=== PATIENT | male | born 1995 | race Caucasian/White ===

== ENCOUNTER → 2022-03-06 | Outpatient (CLI) | payer OTHER, SELFPAY ==
[2022-03-06 18:06] LABS: Anion Gap 4 (5-15); BUN 16 mg/dL (7-18); BUN/Creat Ratio 15.8 RATIO (10-20); Calcium,Total 9.3 mg/dL (8.5-10.1); Chloride 108 mmol/L (98-107); Creatinine, Serum 1.01 mg/dL (0.70-1.30); EST Glomerular Filtration Rate 93 mL/min (>60); Est Glom Filt Rate - Afr Amer 113 mL/min (>60); Glucose 55 mg/dL (74-106); Magnesium 2.3 mg/dL (1.6-2.6); Potassium 3.9 mmol/L (3.5-5.1); Sodium Level 142 mmol/L (136-145); Thyroid Stim Hormone (TSH) 0.94 uIU/mL (0.358-3.74)
== END | disposition home or self-care (01) ==
LOC: LAB 15:52
PROVIDERS: PCP Nurse Practitioner Family; Referring Provider Internal Medicine Cardiovascular Disease; Visit Provider Internal Medicine Cardiovascular Disease
DX: R00.0 Tachycardia, unspecified (principal); R00.2 Palpitations
CPT/HCPCS: 36415; 80048; 83735; 84443

== ENCOUNTER → 2022-03-09 | Outpatient (CLI) | payer SELFPAY, OTHER ==
--- NOTE | 2022-03-09 10:14 | ECHOD_ITS ---
Reason For Study: TACHYCARDIA Procedure This was a 2D Doppler, Color Flow transthoracic echocardiogram. Exam performed in department. Left Ventricle Normal LV size. Left ventricular systolic function is normal. The estimated ejection fraction is 60 %. Normal diastology for age. No regional wall motion abnormalities noted. Right Ventricle Normal RV size. Normal systolic function. Atria Normal left atrium. Normal right atrium. Mitral Valve Normal mitral valve. Tricuspid Valve Normal tricuspid valve. Aortic Valve Normal aortic valve. Trivial eccentric aortic valve insufficiency. Pulmonic Valve Normal pulmonic valve. Great Vessels Normal aortic root. The pulmonary artery is normal size. Normal inferior vena cava. Pericardium/Pleural No pericardial effusion. MMode/2D Measurements & Calculations LVIDd: 4.4 cm IVSd: 1.0 cm Ao root diam: 3.2 cm LVIDs: 3.1 cm LVPWd: 0.99 cm RVDd: 3.4 cm FS: 30.7 % LAV(MOD-bp): 41.1 ml LVAd ap4: 35.9 cm2 SV(MOD-sp4): 76.8 ml LAV(MOD-bp) Indexed: 20.1 ml/m2 LVLd ap4: 8.5 cm LAV(MOD-sp2): 39.3 ml EDV(MOD-sp4): 125.1 ml LAV(MOD-sp4): 41.4 ml EDV(sp4-el): 129.3 ml LVAs ap4: 20.1 cm2 LVLs ap4: 7.1 cm ESV(MOD-sp4): 48.2 ml ESV(sp4-el): 48.3 ml EF(MOD-sp4): 61.4 % EF(sp4-el): 62.6 % SV(sp4-el): 81.0 ml LA A4 area: 16.3 cm2 LA dimension(2D): 3.2 cm RA A4 area: 14.3 cm2 Time Measurements MV dec time: 0.20 sec Doppler Measurements & Calculations MV E max justin: 80.2 cm/sec Lat Peak E' Justin: 15.7 cm/sec Med Peak E' Justin: 11.0 cm/sec MV A max justin: 57.8 cm/sec E/E' lat: 5.1 E/E' med: 7.3 MV E/A: 1.4 Ao V2 max: 117.5 cm/sec AI max justin: 452.3 cm/sec LV V1 max: 116.3 cm/sec Ao max P.5 mmHg AI max P.8 mmHg LV V1 max P.4 mmHg AI dec slope: 175.0 cm/sec2 AI P1/2t: 757.1 msec PA V2 max: 118.8 cm/sec ECHO/Echo Complete Interpretation Summary Normal LV size. Left ventricular systolic function is normal. The estimated ejection fraction is 60 %. Trivial eccentric aortic valve insufficiency. Structurally normal valves. Ordering Physician: Sean Cho Referring Physician: POLO FERNANDEZ Performed By: Cait Jaramillo RDCS
== END | disposition home or self-care (01) ==
PROVIDERS: PCP Nurse Practitioner Family; Referring Provider Internal Medicine Cardiovascular Disease; Visit Provider Internal Medicine Cardiovascular Disease
DX: R00.0 Tachycardia, unspecified (principal); R00.2 Palpitations
CPT/HCPCS: 93306

== ENCOUNTER 2022-04-12 19:54 | Emergency (ER) | payer OTHER, SELFPAY ==
[2022-04-12 19:55] VITALS: BP 113/80; PULSE 106; RESP 16; TEMP 37.9; O2SAT 96; BMI 25.7
[2022-04-12] MEDS: Cephalexin 250 MG Capsule 500 MG PO (21:47)
--- NOTE | 2022-04-12 22:14 | EX.ED.DYSGE1 ---
HPI History of Present Illness Chief Complaint: Bite Informant: patient Narrative Narrative: Patient presenting 4-day history of progressive redness in the back of his right leg. Noticing fevers. Denies cough or urinary symptoms. Denies vomiting or diarrhea. He states he was playing golf 4 days ago he noted slight redness initially. This is gotten larger. Denies any history of IV drug use. Patient does report some generalized myalgias for 3 days. Patient taking ibuprofen for the last couple days. Denies any pruritic symptoms with the rash. Prior similar symptoms: No PFSH PFSH Medical History Tobacco abuse Home Medications cephalexin 500 mg capsule 500 mg PO Q6 #40 caps 04/12/22 [Rx Last Taken Unknown] Allergy/AdvReac Type Severity Reaction Status Date / Time No Known Allergies Allergy Verified 04/12/22 19:56 Social History Smoking Status: Current every day smoker tobacco type: cigarettes and smokeless tobacco alcohol intake: current alcohol intake frequency: a few times a week Alcohol type: beer ROS ROS ED Constitutional Constitutional ED: Reports fever(s); Denies chills or sweats Eyes Eyes: Denies change in vision ENT ENT ED: Denies dysphagia or sore throat Cardiovascular Cardiovascular: Denies chest pain, leg edema, palpitations or racing heartbeat Respiratory/Chest Respiratory/Chest: Denies cough, dyspnea or dyspnea on exertion Gastrointestinal Gastrointestinal: Denies abdominal pain, diarrhea, nausea or vomiting Genitourinary Genitourinary ED: Denies dysuria, hematuria or urinary frequency Musculoskeletal Musculoskeletal: Denies back pain, extremity pain or neck pain Integumentary Reports rash; Denies wounds Neurologic Neurologic: Denies headache(s), paresthesias or weakness EXAM Physical Exam Const Vital Signs: 04/12/22 19:55 Temperature 100.2 F H Temperature Source Temporal Pulse Rate 106 H Respiratory Rate 16 Blood Pressure 113/80 Blood Pressure Mean 91 Pulse Ox 96 Oxygen Delivery Method Room Air Positive well nourished and well developed General Appearance ED: well developed and NAD HEENT Reports moist mucous membranes normocephalic and atraumatic Eyes PERRL, EOMs intact bilaterally and conjunctivae normal General Eye ED: Yes normal appearance of both eyes Neck no lymphadenopathy and supple General: Negative for tenderness Chest Wall Chest: Negative for tenderness Resp normal respiratory effort and normal air movement Effort and Inspection: symmetric chest movement; Negative for respiratory distress Cardio regular rate, regular rhythm and no murmurs Peripheral Pulses: pulses 2+ throughout GI normal to inspection, nondistended, normoactive bowel sounds and non-tender Palpation: Negative for guarding or rebound tenderness present Back/Spine no CVA tenderness and no thoracic nor lumbar tenderness Extremity normal to inspection General Extremety ED: Negative for edema or tenderness General Extremity: Negative for edema Neuro oriented x3 and no sensory deficits noted Sensorium / Orientation: awake and alert Skin Skin Narrative: Right lower extremity there is a palm sized circular area of erythema posterior leg just above the calf. There is no induration, no drainage. Nontender. No crepitus. Image ED - Body Diagram Man: 1. 2. MDM MDM MDM Narrative Medical decision making narrative: Low-grade temp of 100.2. He is nontoxic. He has a progressive cellulitis posterior right leg there is no induration or fluctuance for abscess concerns. He is started on Keflex for coverage. Reports myalgias with fevers discussed viral syndrome possible influenza however he is 3 days into the myalgias symptoms, no antivirals for treatment. Discussed continue oral fluids Tylenol Motrin at home. Return precaution discussed. All questions were answered. Discharge Plan Triage Chief Complaint: Bite ED Provider: Juan Briceño Dx/Rx/DC Orders Clinical Impression: Cellulitis of right leg without foot, Fever Instructions: ED Cellulitis, ED Fever Control (Adult) Prescriptions: New cephalexin [cephalexin] 500 mg capsule 500 mg PO Q6 Qty: 40 0RF Primary Care Provider: Paty Ayala Referrals: Paty Ayala, [employer] [Primary Care Provider] - 3-5 Days Disposition Disposition: Home, Self Care Discharge Date/Time: 04/12/22 22:19
== END 2022-04-12 22:19 | disposition home or self-care (01) ==
PROVIDERS: Emergency Provider Emergency Medicine; PCP Nurse Practitioner Family; Visit Provider Emergency Medicine
DX: L03.115 Cellulitis of right lower limb (principal); F17.210 Nicotine dependence, cigarettes, uncomplicated
CPT/HCPCS: 99283